=== PATIENT | female | born 1985 | race Caucasian/White ===

== ENCOUNTER 2020-04-23 12:57 | Outpatient (REF) | payer OTHER, SELFPAY | END 2020-04-23 12:58 | disposition home or self-care (01) | LOC: HO.LAB 12:57 | PROVIDERS: PCP Internal Medicine Endocrinology, Diabetes & Metabolism; Visit Provider Internal Medicine | DX: Z20.828 Contact with and (suspected) exposure to other viral communicable diseases (principal) | CPT/HCPCS: 87635 ==

== ENCOUNTER 2020-05-17 22:20 | Emergency (ER) | payer OTHER, SELFPAY ==
--- NOTE | 2020-05-17 23:07 | ED_ITS ---
HPI - General Adult General Chief complaint: Body Fluid Exposure Stated complaint: needle stick Time Seen by Provider: 05/17/20 23:07 Source: patient Mode of arrival: ambulatory Limitations: no limitations History of Present Illness HPI narrative: patient works as a RN in our hospital was giving the patient IM injection and while putting the syringe back in container poked herself with a used needle to the left hand . Source has no known HIV or hepatitis-B or C, had blood tested in 10/29 which were negative and patient also does not have any known history of HIV or hepatitis-B or C. Related Data Allergies Allergy/AdvReac Type Severity Reaction Status Date / Time No Known Allergies Allergy Unverified 03/29/20 17:29 Review of Systems Review of Systems: Yes all other systems are reviewed and are negative [facility] Past Medical History Medical History (Updated 05/17/20 @ 23:24 by Yari Burden) No known health problems Social History Social History Advance Directives: No Physical Exam Vital Signs: Vital Signs: Last Vital Signs Temp 97.8 F 05/17/20 23:20 Pulse 64 05/17/20 23:20 Resp 16 05/17/20 23:20 BP 115/68 05/17/20 23:20 Pulse Ox 98 05/17/20 23:20 Body Mass Index 30.0 Appearance: Alert. Oriented X3. No acute distress. Skin: Skin warm and dry. small punctured wound on the left dorsum of the hand no active bleed Course Course Course Narrative: blood from the source was drawn for HIV hepatitis-B and C.. source HIV report is negative hepatitis pending Discharge Plan Discharge Clinical Impression: Needle exposure Qualifiers: Encounter type: initial encounter Qualified Code(s): X58.XXXA - Exposure to other specified factors, initial encounter Patient Disposition: Home, Self-Care Instructions: Body Substance Exposure (ED) Additional Instructions: will let you know about patient hepatitis and HIV status Interventions: ED Discharge Assessment Last Done: 05/18/20 00:31 Discharge Date/Time: 05/18/20 00:32
[2020-05-17 23:20] VITALS: BP 115/68; PULSE 64; RESP 16; TEMP 36.6; O2SAT 98
== END 2020-05-18 00:32 | disposition home or self-care (01) ==
PROVIDERS: Emergency Provider Internal Medicine; PCP Family Medicine
DX: T75.89XA Other specified effects of external causes, initial encounter (principal); X58.XXXA Exposure to other specified factors, initial encounter; Z20.828 Contact with and (suspected) exposure to other viral communicable diseases
CPT/HCPCS: 99283

== ENCOUNTER → 2020-05-23 09:46 | Outpatient (BNVA) | payer OTHER, SELFPAY | PROVIDERS: PCP Family Medicine | DX: Z20.828 Contact with and (suspected) exposure to other viral communicable diseases (principal) | CPT/HCPCS: 84450; 84460; 86706; 86803; 87389; 99202 ==

== ENCOUNTER 2020-07-30 14:50 | Outpatient (REF) | payer SELFPAY ==
[2020-07-30 16:12] LABS: Cholesterol 205 mg/dL
== END 2020-07-30 14:51 | disposition home or self-care (01) ==
LOC: HO.LNC 14:50
PROVIDERS: Visit Provider Pathology Anatomic Pathology & Clinical Pathology
DX: Z13.89 Encounter for screening for other disorder (principal)
CPT/HCPCS: 36415; 82465

== ENCOUNTER 2020-09-28 08:41 | Outpatient (REF) | payer OTHER, SELFPAY ==
[2020-09-28 09:47] LABS: Anion Gap 10 (12-20); Blood Urea Nitrogen 14 mg/dL (9-16); Calcium 9.4 mg/dL (8.4-10.2); Carbon Dioxide 29 mmol/L (22-29); Chloride 105 mmol/L (96-108); Estimated Glomerular Filt Rate > 60; Glucose Random 88 mg/dL (60-115); Potassium 5.4 mmol/L (3.3-5.1); Sodium 139 mmol/L (135-145)
[2020-09-28 10:17] LABS: HBS Num1 > 1000.00 mIU/mL (0-7.99); ~Hepatitis B Surface Antibody REACTIVE (Nonreactive)
== END 2020-09-28 08:42 | disposition home or self-care (01) ==
LOC: HO.LAB 08:41
PROVIDERS: Acupuncturist; PCP Family Medicine; Visit Provider Family Medicine
DX: Z02.1 Encounter for pre-employment examination (principal); Z86.32 Personal history of gestational diabetes
CPT/HCPCS: 36415; 80048; 86706

== ENCOUNTER 2020-09-29 08:24 | Outpatient (REF) | payer OTHER, SELFPAY ==
[2020-09-29 09:13] LABS: COVID-19 Test Negative (Negative)
== END 2020-09-29 08:25 | disposition home or self-care (01) ==
LOC: HO.LAB 08:24
PROVIDERS: PCP Family Medicine; Visit Provider Internal Medicine
DX: Z20.822 Contact with and (suspected) exposure to COVID-19 (principal)
CPT/HCPCS: 36415; 87635

== ENCOUNTER 2020-10-29 15:57 | Outpatient (REF) | payer OTHER, SELFPAY ==
--- NOTE | ~2020-10-29 | US_ITS ---
EXAMINATION: US OBSTETRICAL ULTRASOUND CLINICAL INFORMATION: Follow-up . COMPARISON: Ultrasound of the 06/17/2019. LMP: 08/27/2020. Gestational age by maternal dates is 9 weeks and 0 days. Estimated date of delivery by maternal dates is 06/03/2021. TECHNIQUE: Change transabdominal imaging off pelvis was performed. FINDINGS: There is a single intrauterine gestational sac with visible yolk sac, embryo/fetus, and cardiac activity. There is a small subchorionic hemorrhage or hematoma. HR: 142 beats per minute. CRL (crown rump length): 1.23 cm (7 weeks and 4 days +/- 4 days). SHEREEN (estimated date of delivery): 06/13/2021 +/- 4 days. MATERNAL ADNEXA: The right maternal ovary measures 2.7 x 1.5 x 1.8 cm. The left maternal ovary measures 4.1 x 2.1 x 2.2 cm. There is anechoic corpus luteal cyst measuring 1.7 x 1.5 x 2.1 There is no significant maternal adnexal mass. No maternal pelvic ascites. US/US OB <= 14 weeks fetus IMPRESSION: 1. Single intrauterine gestation with ultrasound gestational age of 7 weeks and 4 days +/- 4 days. 2. Estimated date of delivery is 06/13/2021 +/- 4 days. 3. Small corpus luteal cyst left ovary. 4. Small subchorionic bleed
== END 2020-10-29 15:58 | disposition home or self-care (01) ==
LOC: HO.US 15:57
DX: O09.521 Supervision of elderly multigravida, first trimester (principal); Z3A.09 9 weeks gestation of pregnancy
CPT/HCPCS: 76801

== ENCOUNTER 2021-01-25 08:24 | Outpatient (REF) | payer OTHER, SELFPAY ==
--- NOTE | ~2021-01-25 | US_ITS ---
EXAMINATION: US OBSTETRICAL CLINICAL INFORMATION: 35-year-old at 20.1 weeks of gestation Screening for anomaly AMA COMPARISON: 10/29/2020 TECHNIQUE: Real-time transabdominal ultrasound was performed using C1-5 megahertz transducer. FINDINGS: A single, active, fetus is seen in transverse presentation. The placenta is posterior without previa, and the amniotic fluid volume is wnl. MEASUREMENTS: 1. Biparietal Diameter: 4.3 cm; 19.1 wks 2. Occipital Frontal Diameter: 6.1 cm 3. Head Circumference: 17.0 cm; 19.5 wks 4. Abdominal Circumference: 14.3 cm; 19.5 wks 5. Femur Length: 3.0 cm; 19.3 wks 6. Humerus Length: 6 2.8 cm; 19.0 wks 7. Tibia Length: 2.7 cm; 19.5 wks 8. Ulna Length: 2.8 cm; 20.2 wks 9. Lateral ventricle: 0.7 cm 10. Cerebellum: 1.97 cm; 20.1 wks 11. Cisterna Magna: 0.5 cm 12. Nuchal Fold: 3.15 mm 13. Heart Rate: 149 beats per minute Rt ovary: normal Lt ovary: normal Cervical length 5.2 cm on T/A. GESTATIONAL AGE: 1. Established GA: 20.1 wks 2. GA from [facility]: wks ESTIMATED DATE OF DELIVERY: 1. Established SHEREEN: 06/13/2021 2. SHEREEN from [facility]: 06/17/2021 ANATOMY: The visualized anatomy includes but not limited to: 1. Cranium: Normal 2. Intracranial anatomy: cavum septum pellucidi, lateral ventricles, choroid plexus, cerebellum, posterior fossa, third and fourth ventricles. 3. face: orbits, lip/palate, profile, nasal bone 4. Heart: four-chamber view of the heart, ventricular septum, foramen ovale, pulmonary vein, left and right outflow tracts, three-vessel view, 3 vessel trachea view, aortic and ductal arches, situs.. 5. Diaphragm: Normal 6. Abdominal wall: Normal 7. Cord Insertion: Normal 8. Spine: Cervical, thoracic, lumbar, sacral. 9. Stomach: Normal size and shape 10. Right Kidney: Normal 11. Left Kidney: Normal 12. 3 vessel cord: Normal 13. Upper extremity: Open hands, fifth digit. 14. Lower extremity: Tibia, fibula, bilateral feet. 15. Bladder: Normal 16. Genitalia: Male, patient aware US/ OB /maternal detail IMPRESSION: 1. Single, living, intrauterine with appropriate biometry. 2. Normal survey RECOMMENDATIONS: Follow-up as clinically indicated. Thank you for allowing me to participate in her care. This note was generated with a voice recognition program. Please excuse any errors which may have been overlooked during my review of this note. Sometimes these errors may affect the content or meaning of a given sentence.
== END 2021-01-25 08:25 | disposition home or self-care (01) ==
LOC: HO.US 08:24
PROVIDERS: PCP Family Medicine; Visit Provider Radiology Diagnostic Radiology
DX: O09.521 Supervision of elderly multigravida, first trimester (principal)
CPT/HCPCS: 76811

== ENCOUNTER 2021-04-19 11:08 | Outpatient (REF) | payer OTHER, SELFPAY | END 2021-04-19 11:09 | disposition home or self-care (01) | LOC: HO.LAB 11:08 | PROVIDERS: PCP Family Medicine; Visit Provider Internal Medicine | DX: Z20.822 Contact with and (suspected) exposure to COVID-19 (principal) | CPT/HCPCS: C9803; U0003; U0005 ==

== ENCOUNTER → 2022-05-01 13:13 | Outpatient (RCR) | payer OTHER, SELFPAY ==
[2020-07-18 09:34] LABS: SARS-COV-2 PCR UMBRL Not Detected
== END | disposition home or self-care (01) ==
LOC: HO.EMPCOV 06-21 13:07
PROVIDERS: Visit Provider Internal Medicine
DX: Z20.828 Contact with and (suspected) exposure to other viral communicable diseases (principal)
CPT/HCPCS: C9803; U0003